=== PATIENT | male | born 2000 | race Caucasian/White ===

== ENCOUNTER 2019-05-10 08:00 | Observation (INO) ==
[2019-05-10 08:37] LABS: Basophils # (auto) 0.03 K/uL (0-0.2); Basophils % (auto) 0.2 %; Eosinophils # (auto) 0.04 K/uL (0-0.5); Eosinophils % (auto) 0.3 %; Hematocrit (blood only) 40.2 % (42-52); Hemoglobin 14.7 g/dL (14.0-18.0); Immature Granulocytes # (auto) 0.02 K/uL (0.00-0.02); Immature Granulocytes % (auto) 0.2 %; Lymphocytes # (auto) 1.51 K/uL (1.2-3.4); Lymphocytes % (auto) 12.1 %; Mean Corpuscular Hemoglobin 31.3 pg (25-34); Mean Corpuscular Hgb Conc 36.6 g/dL (32-36); Mean Corpuscular Volume 85.7 fL (80-100); Mean Platelet Volume 9.1 fL (7.4-10.4); Monocytes # (auto) 0.94 K/uL (0.11-0.59); Monocytes % (auto) 7.6 %; Neutrophils # (auto) 9.89 K/uL (1.4-6.5); Neutrophils % (auto) 79.6 %; Platelet Count 261 K/uL (130-400); RDW Coefficient of Variation 13.8 % (11.5-14.5); RDW Standard Deviation 42.8 fL (36.4-46.3); Red Blood Count 4.69 M/uL (4.7-6.1); White Blood Count 12.43 K/uL (4.8-10.8)
--- NOTE | 2019-05-10 09:36 | History & Physical Report ---
Date of Service May 10, 2019 Assessment & Plan (1) Right lower quadrant abdominal pain: This is a 19yM who presents to the [facility] ED this AM with complaints of abdominal pain. Initial CT was read as showing a stool burden without an acute intraabdominal process and was re-read this AM by our radiologist with some concerns for acute appendicitis, despite difficult visualization of the appendix. WBC 12.4. On examination patient has diffuse abdominal pain mostly of lower abdomen, that is worse in the RLQ to palpation. His pain is improving, but he did receive morphine around 6am. As CT read is equivocal and patient's pain is overall improving, we will admit the patient under observation status at this time and will check on him again later this AM with Dr. Conn. Will keep him NPO with IVF in the event we decide to operate on patient later today. Patient is agreeable with the plan. History of Present Illness Primary Care Provider: [facility] This is a 19y M who presents to the [facility] ED on the AM of 05/10/19 with complaints of abdominal pain. Patient reports that he woke up from his sleep this morning around 4AM with diffuse abdominal pain ranking it an 8/10. He used pillows for pressure and no matter what he position he attempted to lie in could not get comfortable. Because of the severity of the pain patient reported to the ED for further evaluation. He endorses nausea without vomiting. He denies diarrhea, fevers, or chills. He ate chicken and rice last night for dinner around 6:30 pm and had some milk of magnesia and apple juice this AM in the ED. Patient says he did pass a small BM today after the M.O.M. In the ED patient is afebrile, WBC 12.4, and a CT scan obtained was read as although the appendix is difficult to visualize, there is concern for acute appendicitis as there is a small amount of fluid in the pelvis. General surgery was consulted for further evaluation. Of note, the patient was initially sent home from the ED as CT scan read by overnight radiologist was not concerning for an acute intraabdominal process and was re-read this AM by [facility] radiology raising the concern for the probability of acute appendicitis and therefore was called back. Patient states his pain is improving, but did receive some pain meds in the ED. Allergies Allergy/AdvReac Type Severity Reaction Status Date / Time No Known Allergies Allergy Unverified 05/10/19 08:55 Home Medications Home Medications Medication Instructions Recorded Confirmed Type bupropion HCl 150 mg PO QAM 05/10/19 05/10/19 History emtricitabine-tenofovir (TDF) 1 tab PO QAM 05/10/19 05/10/19 History [Truvada] Past Med/Surg History Medical History No significant past medical history Social History Preferred Language: Mosotho Communication Ability: Effective Beliefs That Will Affect Care: None Current Living Situation: Other Current Living Situation Comment: ROOMMATE Other Information That Helps Us Care for You: No Feels Safe at Home: Yes Safety Concerns: Feels Safe At This Time Smoking Status: Never smoker Hx Alcohol Use: No Hx Substance Use: No Review of Systems Constitutional: no fever and no chills Gastrointestinal: + abdominal pain (diffuse, worse in the RLQ when palpated), + bloating and + nausea; no vomiting and no diarrhea/loose stools Genitourinary: + as per Subjective / HPI (no urinary complaints) Physical Exam Physical Exam: awake/alert Constitutional: well developed, well nourished, cooperative and comfortable; no acute distress Respiratory: normal respiratory effort; no respiratory distress Cardiovascular: Rate/Rhythm: regular rhythm Gastrointestinal (Abdomen): Percussion/Palpation: + abdomen tender (general mild tenderness to palpation, worse in RLQ) and abdomen soft Results & Data Vital Signs (Past 12 Hours) Vital Signs Temp Pulse Resp BP Pulse Ox 05/10/19 08:06 36.8 C 101 H 20 122/[address] OF THE ABDOMEN AND PELVIS WITH CONTRAST CLINICAL HISTORY: Right lower quadrant abdominal pain. Evaluate for acute appendicitis. COMPARISON STUDY: None. TECHNIQUE: Following IV administration of 92 mL of Optiray-320, axial images of the abdomen and pelvis were obtained from the lung bases to the proximal femurs. Images were reviewed in the axial, sagittal, and coronal planes. IV contrast was administered without complication. Automated exposure control was utilized for the study. A dose lowering technique was utilized adhering to the principles of ALARA. CT DOSE: 370.80 mGy.cm FINDINGS: Lung bases are clear. The upper, adrenal glands, kidneys and pancreas are normal. There is borderline splenomegaly. There is no evidence for a bowel obstruction. A small mild fluid within the pelvis is noted. There is stool within the terminal ileum. The appendix is difficult to visualize but likely demonstrated within the posterior upper pelvis on axial image 301 of 486. This measures 1 cm in caliber and appears to be blind-ending. No rim-enhancing fluid collection is identified to suggest an abscess. There are no suspicious osseous lesions. IMPRESSION: Probable acute appendicitis. Appendix difficult to visualize but likely abnormal with a small amount of fluid within the pelvis. No free air or periappendiceal abscess. Findings discussed with Dr. Callahan at time of dictation. Electronically signed by: Stew Mayer M.D. 05/10/2019 7:44 AM Code Status & VTE Plan VTE Prophylaxis Plan VTE Prophylaxis will be ordered: Yes Supervising Physician Co-Signing Physician Notes Events of last night and this morning and examining patient is documented Patient had acute onset of abdominal pain 4:00 this morning was seen in the emergency room after given morphine and getting a CAT scan with the original reading which was negative was sent home I reviewed the CAT scan the patient was found to have possible appendicitis The patient at this time states that he is feeling better than when he first came in emergency room last evening His sclera is injected he feels warm he has exquisite tenderness and rebound in right lower quadrant below McBurney's point testes is normal there is no hernias but are examined in the canal he does experience some discomfort Repeat white count was noted with left shift The father is at bedside At this point I recommended the patient undergo laparoscopic appendectomy possible open risk and complication were explained to the patient including bleeding infection converting to an open procedure and like to proceed accordingly PG Care Time/CCT Total # of Minutes Spent Total Time Spent with Patient: Total time spent is greater than 50% in coordination of care (as documented) at patient's floor/unit and/or counseling patient:
[2019-05-10] MEDS ORDERED: ONDANSETRON INJ 2 MG/ML 2 ML VIAL IV PRN ×2 (10:07→13:48)
[2019-05-10] MEDS ORDERED: MoRPHine SULFATE 4 MG/ML 1 ML CARP\\VIAL IV PRN (10:07)
[2019-05-10] MEDS ORDERED: SODIUM CHLORIDE 0.9% 1000ML 1,000 ML IV SCH (10:07)
[2019-05-10] MEDS ORDERED: MoRPHine SULFATE 2 MG/ML CARP IV PRN (10:07)
[2019-05-10] MEDS ORDERED: ACETAMINOPHEN 325 MG TAB PO PRN (10:07)
[2019-05-10] MEDS: BuPROPion XL 150 MG TABCR PO SCH (11:10)
[2019-05-10] MEDS ORDERED: cefOXitin 2,000 MG in DEXTROSE 5% 50 ML IV STA (11:47)
[2019-05-10] MEDS ORDERED: LIDOCAINE/EPINEPHRINE 1% 20 ML VIAL ONE (11:56)
[2019-05-10] MEDS ORDERED: fentaNYL citrate 100 MCG/2 ML VIAL ONE ×2 (12:15→13:00)
[2019-05-10] MEDS ORDERED: MIDAZOLAM HCL 1 MG/ML 2ML VIAL ONE (12:15)
--- NOTE | 2019-05-10 12:41 | Anesthesiology Consultation ---
Date of Service May 10, 2019 Assessment & Plan Chart Review Chart Review: Acceptable Risk for Surgery and Patient NOT seen in Pre Admission Testing Consults Requested none ASA ASA1E Proposed Anesthesia Anesthesia Type: General Risk / Benefits Reviewed With: PT / POA / Parent / Guardian, Accepts Plan and Informed Consent Obtained History Surgery Operation Date: 05/10/19 07:30 Proposed Procedures p Laparoscopic Appendectomy - Benjamin Conn MD Height/Weight Height: 5 ft 11 in Weight: 81.2 kg Allergies Allergy/AdvReac Type Severity Reaction Status Date / Time No Known Allergies Allergy Unverified 05/10/19 08:55 Medications Home Medications Medication Instructions Recorded Confirmed Last Taken bupropion HCl 150 mg PO QAM 05/10/19 05/10/19 05/09/19 emtricitabine-tenofovir (TDF) 1 tab PO QAM 05/10/19 05/10/19 05/09/19 [Truvada] Active Medications Generic Name Dose Route Start Last Admin Trade Name Freq PRN Reason Stop Dose Admin Bupropion HCl 150 mg 05/10/19 10:07 05/10/19 11:10 Wellbutrin-Xl PO 06/09/19 10:06 150 mg QAM TRACIE Administration Sodium Chloride 1,000 mls @ 125 mls/hr 05/10/19 10:07 05/10/19 12:02 Nss 1000ml IV 06/09/19 10:06 0 mls/hr .Q8H TRACIE Infusion NPO Date Last Intake of Fluids: 05/10/19 Time Last Intake of Fluids: 07:30 Last Intake of Fluids Comment: mom,apple juice, sprite Date Last Intake of Solids: 05/09/19 Time Last Intake of Solids: 18:00 Past Medical History Medical History No significant past medical history Exercise / Class Metabolic Activity 1 > 8 Run/Swim/Ski/Tennis Past Anesthesia History No Hx of Anesthesia Complications and No Family Hx of Anesthesia Complications History of PONV No Hx of PONV and No Hx of Motion Sickness Social History Smoking Status: Never smoker Hx Alcohol Use: No Hx Substance Use: No Physical Exam Vital Signs Last Vital Signs Temp 36.8 C 05/10/19 12:18 Pulse 84 05/10/19 12:18 Resp 16 05/10/19 12:18 BP 120/70 05/10/19 12:18 Pulse Ox 100 05/10/19 12:18 Constitutional not obese ENMT Mouth: no dentition abnormality Thyromental Distance: > or= 3.5 Finger Breadths Mallampati Class: II Neck normal visual inspection, trachea midline and + facial hair; neck extension not limited Respiratory normal respiratory effort Auscultation: lungs clear to auscultation bilaterally Cardiovascular Rate/Rhythm: regular rate and regular rhythm Heart Sounds: no murmur Musculoskeletal Spine: normal cervical ROM Neurologic moves all extremities Motor/Sensory: no sensory deficit Psychiatric Orientation: alert and oriented x 3 Testing Laboratory Results 05/10/19 08:28 05/10/19 08:28
[2019-05-10] MEDS ORDERED: ONDANSETRON INJ 2 MG/ML 2 ML VIAL ONE (13:02)
[2019-05-10] MEDS ORDERED: PROPOFOL IV EMULSION 10 MG/ML 20 ML VIAL IV ONE (13:02)
[2019-05-10] MEDS ORDERED: DEXAMETHASONE SOD INJ 4 MG/ML VIAL ONE (13:02)
[2019-05-10] MEDS ORDERED: ROCURONIUM BROMIDE 10 MG/ML 5 ML VIAL ONE (13:02)
[2019-05-10] MEDS ORDERED: NEOSTIGMINE METHYLSULFATE 5 MG/5 ML SYR ONE (13:02)
[2019-05-10] MEDS ORDERED: GLYCOPYRROLATE 0.2 MG/ML VIAL ONE (13:02)
[2019-05-10] MEDS ORDERED: LIDOCAINE HCL 2% 2 ML VIAL/AMP(20MG/ML) INFIL ONE (13:02)
[2019-05-10] MEDS ORDERED: LARYING-O-JET KIT (LTA) ONE (13:02)
[2019-05-10] MEDS ORDERED: KETOROLAC 30 MG/ML VIAL ONE (13:29)
--- NOTE | 2019-05-10 13:34 | Post Operative Brief Note ---
PG Immediate Post Op with CF Date of Surgery May 10, 2019 Pre & Post Diagnosis Operation Date: 05/10/19 07:30 Pre-Op Diagnosis: Acute appendicitis Post-Op Diagnosis: Acute appendicitis I identified the patient and participated in the time-out.: Yes Procedure Operation Date: 05/10/19 07:30 Actual Procedures p Laparoscopic Appendectomy(Not Applicable) - Benjamin Conn MD Surgeon Benjamin Conn MD Production Weigher roxana hutchinson Estimated Blood Loss 5 Findings Consistent with Post-Op Diagnosis Specimens Specimen Description: A. Appendix
[2019-05-10] MEDS ORDERED: HYDROmorphone INJ 1 MG/ML SYRINGE IV PRN (13:48)
[2019-05-10] MEDS ORDERED: FLUMAZENIL 0.1 MG/1 ML 10 ML VIAL IV PRN (13:48)
[2019-05-10] MEDS ORDERED: PROMETHAZINE HCL 12.5 MG in SODIUM CHLORIDE 0.9% 50 ML IV PRN (13:48)
[2019-05-10] MEDS ORDERED: ATROPINE SULFATE 0.1 MG/ML 10ML SYR IV PRN (13:48)
[2019-05-10] MEDS ORDERED: ePHEDrine sulfate 50 MG/ML AMP IV PRN (13:48)
[2019-05-10] MEDS ORDERED: NALOXONE HCL 0.4 MG/1 ML VIAL/CARP IV PRN (13:48)
--- NOTE | 2019-05-10 13:57 | Operative Report ---
PG Post Operative Report Pre & Post Diagnosis Operation Date: 05/10/19 07:30 Pre-Op Diagnosis: Acute appendicitis Post-Op Diagnosis: Acute appendicitis I identified the patient and participated in the time-out.: Yes Procedure Operation Date: 05/10/19 07:30 Actual Procedures p Laparoscopic Appendectomy(Not Applicable) - Benjamin Conn MD The patient was brought into the operating theater in supine position general anesthesia administered systemic antibiotics given the abdomen shaved and prepped with Betadine solution properly draped timeout was had patient identified small transverse incision was made supraumbilically approximately quarter inch long Veress needle followed by CO2 followed by 5 mm trocar point of entry inspected no injury and then a 5 and direct utilization we placed a 5 mm right upper quadrant port with preemptive local analgesic we scanned the abdomen with the scope and identified what appeared to be some fibers and exudate overlying the omentum patient was very thin and had very little omentum but we could see some appearances then returned to the cecal area we able to identify the appendix at its base is going down towards the pelvic inlet did not see any cloudy fluid or any evidence of rupture. Therefore at this time we placed the CO2 insufflator right upper quadrant port enlarged the incision in the umbilical area by enlargement first the skin and subcutaneous tissue using a Lesvia clamp to dilate out the tract from 5 mm to 11 mm trocar under direct visualization the 5 mm trocar was placed in left lower quadrant followed by the camera in that area the patient was placed in reverse Trendelenburg rotated to the left we were able then to elevate the cecum patient had a very redundant appendix noted pretty much diffusely dilated with the tip has a fibrous exudate without any rupture. We created a window at the base the appendix from the cecum and used a xie loads to this could be a purple load to fire at the base freeing it from the cecum. The mesoappendix was quite long edematous as a lot of fibers and exudate lateral aspect going on the lateral wall we then took this down by sharp diss ection electrocautery were able then to elevate the mesoappendix and use of the purple stapler to divided completely and elevated the appendix off the tissue there appears satisfactory just minimal oozing along the staple line we would observe this the appendix was placed in an Endopouch taken out intact through the epigastric port patient was taken in the reverse Trendelenburg I irrigated the abdomen and pelvic area sufficiently enough that we were found that hemostasis but is fairly satisfactory we elevated the cecum again identified the appendix remnant which was very little almost appeared to be in the cecal area the mesoappendix and the oozing of pretty much subsided. This point individual trochars were taken under direct visualization unless the umbilical trocar fascial stitch of 2-0 Vicryl was used [id number] x2 for the umbilical area the abdomen 4-0 Monocryl Steri-Strips applied procedure was tolerated well estimated blood loss 5 cc addendum Roxana WEBBER was present throughout the procedure and helped with exposure camera work and wound closure thank you Surgeon Benjamin Conn MD [employer] Picker roxana webber Estimated Blood Loss 5 Findings Consistent with Post-Op Diagnosis Specimens appendix Description of Procedure merda I attest to the content of the Intraoperative Record and any orders documented therein. Any exceptions are noted below.
--- NOTE | 2019-05-10 14:24 | Emergency Department Note ---
Entered by Souleymane Perdomo acting as a scribe for History of Present Illness General Chief complaint: Abdominal Pain Stated complaint: ABDOMINAL PAIN Source: patient History of Present Illness Provider complaint: Abdominal pain Onset (ago): hour(s) (4.5) Location: abdomen Pain Consistency: + constant Maximum Pain Intensity: 6 Current Pain Intensity: 6 Relieved By: + none Exacerbated By: + other (Palpation) Associated symptoms: + nausea/vomiting (No vomiting) The patient is a 19 year old male w/ PMHx of constipation and splenomegaly who presents to the ED w/ CC of right lower quadrant pain that started this morning about 4.5 hours ago. The patient rates the pain as a 6/10 and notes nothing makes it better but palpating the area makes it worse. The patient endorses nausea with the pain but denies any episodes of emesis. The patient was in the ED when his symptoms initially onset, and [facility] read his CT as normal, however the [facility] radiologist could not visualized the appendix enough to confidently say it was normal so he suggested to have the patient return. The patient adds that he was discharged with milk of magnesia which he did try along with apple juice and soda, but his symptoms did not change. Home Medications Home Medications Medication Instructions Recorded Confirmed Type bupropion HCl 150 mg PO QAM 05/10/19 05/10/19 History emtricitabine-tenofovir (TDF) 1 tab PO QAM 05/10/19 05/10/19 History [Truvada] oxycodone-acetaminophen [Percocet] 1 - 2 tab PO Q4H PRN #15 tab 05/10/19 Rx Allergies Allergy/AdvReac Type Severity Reaction Status Date / Time No Known Allergies Allergy Unverified 05/10/19 08:55 Past Med/Surg History Medical History No significant past medical history Family History Other No pertinent family history in first degree relatives Social History Preferred Language: Malian Communication Ability: Effective Beliefs That Will Affect Care: None Current Living Situation: Other Current Living Situation Comment: ROOMMATE Other Information That Helps Us Care for You: No Feels Safe at Home: Yes Safety Concerns: Feels Safe At This Time Smoking Status: Never smoker Hx Alcohol Use: No Hx Substance Use: No Review of Systems See HPI for pertinent positives & negatives. and A total of 10 systems reviewed and were otherwise negative Physical Exam Vital Signs Vital Signs - 24 hr 05/10/19 08:06 Temperature 36.8 C Temperature Source Oral Sepsis Recent Fever Within 48 Hours No Sepsis New/Unexplained Change in Mental Status No Sepsis Action Taken by Nursing No Action Required Pulse Rate 101 H Pulse Rhythm Regular Pulse Strength Normal Respiratory Rate 20 Respiratory Effort / Characteristics Non-Labored Spontaneous Respiratory Depth Normal Respiratory Pattern Regular Blood Pressure 122/67 Blood Pressure Mean 85 Blood Pressure Position Sitting Pulse Oximetry 100 Oxygen Delivery Method Room Air GENERAL: Sitting up in bed, alert, disheveled, in mild distress, non-toxic EYE EXAM: normal conjunctiva. OROPHARYNX: no exudate, no erythema, lips, buccal mucosa, and tongue normal and mucous membranes are moist NECK: supple, no nuchal rigidity, no adenopathy, non-tender LUNGS: Clear to auscultation. Normal chest wall mechanics HEART: no murmurs, S1 normal and S2 normal ABDOMEN: abdomen soft, acute TTP to the RLQ, normo-active bowel, sounds, no masses, no rebound or guarding. : Normal external genitalia, nontender, no discharge. SKIN: no rashes and no bruising UPPER EXTREMITIES: upper extremities are grossly normal. LOWER EXTREMITIES: No pitting edema. NEURO EXAM: Normal sensorium, cranial nerves II-XII grossly intact, normal speech, no gross weakness of arms, no gross weakness of legs. Course ED COURSE: Vital signs were reviewed and were normal. The patients medical record was reviewed The above diagnostic studies were performed and reviewed. ED treatments and interventions as stated above. 0831: The patient was evaluated in room B02. A complete history and physical examination was performed. 0841: I spoke to Christina Lynn - General surgery PAC about the patient's case. 0923: I spoke to Chritsina Lynn about the patient's case. She states that her and Dr. Conn are going to accept the patient for further observation. 0940: Upon reevaluation, the patient is resting in bed. I discussed my findings with the patient and he understands and agrees with the treatment plan. Based on the patients age, coexisting illnesses, exam and lab findings the decision to treat as an inpatient was made. The patient remained stable while under my care. The patient will be evaluated for further management. Consultations Consultation #1: I spoke to Christina Lynn - General surgery PAC about the patient's case. Time: 08:41 Consultation #2: I spoke to Christina Lynn - GI PAC about the patient's case. She states that her and Dr. Cnon are going to accept the patient for further observation. Time: 09:23 Administered Medications Bupropion HCl (Wellbutrin-Xl) 150 mg PO QAM TRACIE Stop: 06/09/19 10:06 Last Admin: 05/10/19 11:10 Dose: 150 mg Documented by: [id number] Sodium Chloride (Nss 1000ml) 1,000 mls @ 125 mls/hr IV .Q8H TRACIE Stop: 06/09/19 10:06 Last Infusion: 05/10/19 12:02 Dose: 0 mls/hr Documented by: [id number] Admin: 05/10/19 10:20 Dose: 125 mls/hr Documented by: [id number] Discontinued Medications Cefoxitin Sodium 2,000 mg/ (Dextrose) 60 mls @ 100 mls/hr IV NOW STA Stop: 05/10/19 12:22 Last Admin: 05/10/19 12:38 Dose: 100 mls/hr Documented by: [id number] Lidocaine/Epinephrine (Xylocaine/Epinephrine 1%) Confirm Administered Dose 20 ml .ROUTE .STK-MED ONE Stop: 05/10/19 11:57 Last Admin: 05/10/19 13:33 Dose: 5 ml Documented by: [id number] Medical Decision Making Differential Diagnosis Differential diagnoses includes but is not limited to gastritis, peptic ulcer disease, GERD, gallbladder disease, pancreatitis, small bowel obstruction, acute coronary syndrome, pericarditis, ischemic bowel, irritable bowel disease, irritable bowel syndrome, appendicitis, diverticulitis, malignancy, hernia, urinary tract infection, torsion, perforation, trauma, infectious. Medical Records Attestation: I reviewed the patient's medical records. Home Medications Current Medication List: was personally reviewed by me Laboratory Data Attestation: I reviewed the patient's lab results. Result diagrams: 05/10/19 08:28 05/10/19 08:28 Lab Results 05/10/19 05/10/19 Range/Units 08:28 08: WBC 12.43 H (4.8-10.8) K/uL RBC 4.69 L (4.7-6.1) M/uL Hgb 14.7 (14.0-18.0) g/dL Hct 40.2 L (42-52) % MCV 85.7 (80-100) fL MCH 31.3 (25-34) pg MCHC 36.6 H (32-36) g/dL RDW Std Deviation 42.8 (36.4-46.3) fL RDW Coeff of Kirstin 13.8 (11.5-14.5) % Plt Count 261 (130-400) K/uL MPV 9.1 (7.4-10.4) fL Immature Gran % (Auto) 0.2 % Neut % (Auto) 79.6 % Lymph % (Auto) 12.1 % [place] % (Auto) 7.6 % Eos % (Auto) 0.3 % Baso % (Auto) 0.2 % Immature Gran # (Auto) 0.02 (0.00-0.02) K/uL Neut # (Auto) 9.89 H (1.4-6.5) K/uL Lymph # (Auto) 1.51 (1.2-3.4) K/uL [place] # (Auto) 0.94 H (0.11-0.59) K/uL Eos # (Auto) 0.04 (0-0.5) K/uL Baso # (Auto) 0.03 (0-0.2) K/uL Sodium Cancelled Potassium Cancelled Chloride Cancelled Carbon Dioxide Cancelled Anion Gap Cancelled BUN Cancelled Creatinine Cancelled Est Cr Clr Drug Dosing Cancelled Est GFR ( Amer) Cancelled Est GFR (Non-Af Amer) Cancelled BUN/Creatinine Ratio Cancelled Glucose Cancelled Calcium Cancelled Total Bilirubin Cancelled AST Cancelled ALT Cancelled Alkaline Phosphatase Cancelled Total Protein Cancelled Albumin Cancelled Globulin Cancelled Albumin/Globulin Ratio Cancelled Lipase Cancelled Blood Pressure Blood Pressure Findings: Normal blood pressure MDM Narrative Patient is a 19-year-old male who presents the ER for right lower quadrant abdominal pain which is been present since 4 AM. Patient was seen and evaluated in the ER earlier today had a CT of the abdomen pelvis which was read by stat read and showed no appendicitis. Our radiologist over read it and did question if there was acute appendicitis. His white count with this without leukocytosis. IV was established and blood work was reobtained and white count went up to 12,000. Patient was acutely tender. Was given IV fluids. He was discussed with general surgeon and he was admitted for further work-up. Impression & Plan Acute appendicitis, Right lower quadrant abdominal pain, Leukocytosis Discharge Plan Visit Data *Final* Discharge Date/Time: 05/10/19 09:53 Chief Complaint: Abdominal Pain Stated Complaint: ABDOMINAL PAIN ED Provider: Isaiah Summers Discharge Problem: Acute appendicitis, Right lower quadrant abdominal pain, Leukocytosis Patient Disposition: Admitted As Inpatient Discharge Instructions Interventions: ED Discharge Assessment Last Done: 05/10/19 09:53 The scribe's documentation has been prepared under my direction and personally reviewed by me in its entirety. I confirm that the note above accurately reflects all work, treatment, procedures, and medical decision making performed by me.
[2019-05-10] MEDS ORDERED: OXYCODONE/ACETAMINOPHEN 5mg/325mg TAB PO PRN (14:34)
[2019-05-10] MEDS: LACTATED RINGER'S 1,000 ML IV SCH (15:03)
[2019-05-10] MEDS ORDERED: cefOXitin 2,000 MG in DEXTROSE 5% 50 ML IV SCH (17:00)
[2019-05-10] MEDS: OXYCODONE/ACETAMINOPHEN 5mg/325mg TAB PO PRN ×2 (17:36→21:30)
[2019-05-10] MEDS ORDERED: cefOXitin 2,000 MG in DEXTROSE 5% 50 ML IV ONE (18:30)
[2019-05-10 23:02] VITALS: TEMP 98.1
[2019-05-11] MEDS: LACTATED RINGER'S 1,000 ML IV SCH (03:37)
[2019-05-11 05:34] LABS: Basophils # (auto) 0.02 K/uL (0-0.2); Basophils % (auto) 0.2 %; Eosinophils # (auto) 0.01 K/uL (0-0.5); Eosinophils % (auto) 0.1 %; Hematocrit (blood only) 37.9 % (42-52); Hemoglobin 13.1 g/dL (14.0-18.0); Immature Granulocytes # (auto) 0.02 K/uL (0.00-0.02); Immature Granulocytes % (auto) 0.2 %; Lymphocytes # (auto) 1.92 K/uL (1.2-3.4); Lymphocytes % (auto) 20.4 %; Mean Corpuscular Hemoglobin 30.3 pg (25-34); Mean Corpuscular Hgb Conc 34.6 g/dL (32-36); Mean Corpuscular Volume 87.5 fL (80-100); Mean Platelet Volume 9.2 fL (7.4-10.4); Monocytes % (auto) 10.6 %; Neutrophils # (auto) 6.43 K/uL (1.4-6.5); Neutrophils % (auto) 68.5 %; Platelet Count 262 K/uL (130-400); RDW Coefficient of Variation 13.7 % (11.5-14.5); RDW Standard Deviation 43.5 fL (36.4-46.3); Red Blood Count 4.33 M/uL (4.7-6.1)
[2019-05-11 06:06] LABS: BUN Creatinine Ratio 18.7 (10-20); Calcium 8.3 mg/dl (8.5-10.1); Creatinine Clr Calc Pharmacy 128.1 ml/min; Est GFR (African American) 128.1; Est GFR (Non-African American) 110.5; Potassium 4.2 mmol/L (3.5-5.1)
[2019-05-11] MEDS ORDERED: COUGH DROP (SUGAR FREE) LOZ 24 LOZ/1 BOX BUCCAL ONE (07:20)
--- NOTE | 2019-05-11 07:46 | Surgery Progress Note ---
Date of Service May 11, 2019 Assessment & Plan (1) Acute appendicitis: POD#1 laparoscopic appendectomy WBC 9.4 today and VSS Incisions clean/dry/intact Pain well managed and diet tolerated Plan for discharge to home today. Pt given instructions to follow up in clinic within 1 week for a post op check; okay to take some days off from school Subjective Patient slept well last night. Offers no complaints. Pain is well managed and he is tolerating a regular diet. Physical Exam Physical Exam: awake/alert. mother at bedside Constitutional: well developed and well nourished; no acute distress Respiratory: normal respiratory effort Gastrointestinal (Abdomen): Inspection/Auscultation: + abdominal surgical incision (surgical dressings clean/dry/intact) Results & Data Vital Signs (Past 12 Hours) Vital Signs Temp Pulse Resp BP Pulse Ox 05/11/19 03:55 36.7 C 62 16 103/58 L 99 05/10/19 23:00 36.7 C 78 16 119/63 98 PG Care Time/CCT Total # of Minutes Spent Total Time Spent with Patient: Total time spent is greater than 50% in coordination of care (as documented) at patient's floor/unit and/or counseling patient: (1) Acute appendicitis Acute appendicitis type: unspecified acute appendicitis type Qualified Code(s): K35.80 - Unspecified acute appendicitis
--- NOTE | 2019-05-11 07:49 | Anesthesiology Progress Note ---
Date of Service May 11, 2019 Anesthesia Post Procedure Vital Signs Vital Signs: Temp Pulse Pulse Pulse Resp BP BP 05/11/19 03:55 36.7 C 62 16 103/58 L 05/10/19 23:00 36.7 C 78 16 119/63 05/10/19 19:00 36.5 C 85 16 05/10/19 17:59 36.6 C 85 18 05/10/19 16:35 36.6 C 86 16 05/10/19 15:35 36.7 C 81 16 05/10/19 15:05 36.8 C 87 16 05/10/19 14:35 36.7 C 81 16 05/10/19 14:25 36.5 C 71 16 05/10/19 14:15 36.5 C 70 16 05/10/19 14:05 68 16 05/10/19 13:55 62 16 05/10/19 13:49 36.6 C 86 16 05/10/19 12:18 36.8 C 84 16 120/70 05/10/19 10:19 36.7 C 81 16 120/68 05/10/19 09:50 95 H 16 05/10/19 08:06 36.8 C 101 H 20 122/67 BP Pulse Ox 05/11/19 03:55 99 05/10/19 23:00 98 05/10/19 19:00 120/66 98 05/10/19 17:59 114/66 98 05/10/19 16:35 107/62 98 05/10/19 15:35 109/66 96 05/10/19 15:05 117/68 99 05/10/19 14:35 112/69 100 05/10/19 14:25 108/66 97 05/10/19 14:15 114/69 96 05/10/19 14:05 114/64 97 05/10/19 13:55 111/72 100 05/10/19 13:49 112/66 100 05/10/19 12:18 100 05/10/19 10:19 99 05/10/19 09:50 125/66 99 05/10/19 08:06 100 Pain Intensity Right Abdomen: Pain Intensity: 4 Notes Mental Status: alert / awake / arousable and participated in evaluation Patient Amnestic to Procedure: Yes Nausea / Vomiting: adequately controlled Pain: adequately controlled Airway Patency, RR, SpO2: stable & adequate BP & HR: stable & adequate Hydration State: stable & adequate Anesthetic Complications: no major complications apparent and Pt Satisfied with anesthetic care
--- NOTE | 2019-05-11 07:52 | Discharge Summary ---
Date of Service May 11, 2019 Admission HPI Per Admitting Provider This is a 19y M who presents to the [facility] ED on the AM of 05/10/19 with complaints of abdominal pain. Patient reports that he woke up from his sleep this morning around 4AM with diffuse abdominal pain ranking it an 8/10. He used pillows for pressure and no matter what he position he attempted to lie in could not get comfortable. Because of the severity of the pain patient reported to the ED for further evaluation. He endorses nausea without vomiting. He denies diarrhea, fevers, or chills. He ate chicken and rice last night for dinner around 6:30 pm and had some milk of magnesia and apple juice this AM in the ED. Patient says he did pass a small BM today after the M.O.M. In the ED patient is afebrile, WBC 12.4, and a CT scan obtained was read as although the appendix is difficult to visualize, there is concern for acute appendicitis as there is a small amount of fluid in the pelvis. General surgery was consulted for further evaluation. Of note, the patient was initially sent home from the ED as CT scan read by overnight radiologist was not concerning for an acute intraabdominal process and was re-read this AM by [facility] radiology raising the concern for the probability of acute appendicitis and therefore was called back. Patient states his pain is improving, but did receive some pain meds in the ED. Principal Diagnosis acute appendicitis Discharge Exam awake/alert. mother at bedside Constitutional well developed, well nourished and cooperative; no acute distress Respiratory normal respiratory effort Cardiovascular Rate/Rhythm: regular rate and regular rhythm Gastrointestinal (Abdomen) Inspection/Auscultation: + abdominal surgical incision (surgical bandages clean/dry/intact) Discharge Data Allergies Allergy/AdvReac Type Severity Reaction Status Date / Time No Known Allergies Allergy Unverified 05/10/19 08:55 Consultations 05/10/19 08:55 Consult General Surgery Stat Procedures Performed Operation Date: 05/10/19 07:30 Actual Procedures p Laparoscopic Appendectomy(Not Applicable) - Benjamin Conn MD Hospital Course (1) Acute appendicitis: This is a 19y M who presents to the [facility] ED on the AM of 05/10/19 with complaints of abdominal pain starting around 4am. CT scan was ultimately read as concerning for acute appendicitis. WBC uptrending to 12.4 and patient continued with ongoing abdominal pain. On exam patient acutely tender to palpation in the RLQ. He was made NPO with IVF and started on pre-op IV abx. On 05/10 the patient went to the OR for a laparoscopic appendectomy with Dr. Conn. The patient tolerated the procedure well, see operative report for full details. Post operatively the patient remained admitted under observation as appendix was inflamed intraop. His diet was advanced as tolerated, activity encouraged, and he was voiding on his own spontaneously. On POD#1 patient continued to tolerate a diet, pain was well controlled, and surgical incisions clean/dry/intact. WBC 9.4, patient afebrile, and VSS. He was deemed stable for discharge to home. He was instructed to follow up in clinic within 1 week. Total Time Total Time Spent Total Time Spent (In Minutes): 15 Discharge Plan Discharge Items Patient Disposition: Home - Self-Care Reason For Visit: ABDOMINAL PAIN Discharge Diagnosis: appendectomy Activity: As commented below Lifting: No more than 10 pounds Bathing Comment: can shower today. your top surgical bandages can be removed today as well. Exercise/Sports: Gradually increase as tolerated Driving/Machine Use: Resume 3 days after discharge Non-emergency contact: Surgeon Call non-emergency contact if: you have any medication questions, your pain is not controlled, your pain is worsening, you have a fever, your temperature is above 101.5, your wound has increased redness and your wound has increased drainage Follow-up/Referrals: Benjamin Conn MD [Surgeon] - (Call to make an appt in 1 week) [facility] [Primary Care Provider] - Diet: Regular Addtl Attending Provider Instructions: You may take Tylenol and Ibuprofen over the counter if needed for pain. Do not exceed more than 4grams of Acetaminophen within a 24 hour time period. Pending Studies at Discharge: No Stand-Alone Forms: [employer], Opio[facility] Pain [facility], Work/School Release (Inpt), Smoking Cessation Medications and DC Order Prescriptions: New oxycodone-acetaminophen [Percocet] 5-325 mg tablet 1 - 2 tab PO Q4H PRN (Reason: pain, initial therapy, max 8 daily) Qty: 15 RF: 0 Continued bupropion HCl 150 mg Tablet Extended Release 24 Hr 150 mg PO QAM RF: 0 Truvada 200-300 mg Tablet 1 tab PO QAM RF: 0 Discharge Orders: Discharge Order (Routine); Ordered 05/11/19 Ordered By: Christina Ray/Other Patient Handouts: Appendectomy Admission Data Admit Date/Time: 05/10/19 09:31 Attending Provider: Benjamin Conn Admit Provider: Benjamin Conn Primary Care Provider: [facility] Other Providers: Benjamin Conn
[2019-05-11 08:15] VITALS: O2SAT 100
[2019-05-11 08:18] VITALS: BP 120/66; PULSE 62
[2019-05-11] MEDS: BuPROPion XL 150 MG TABCR PO SCH (08:52)
== END 2019-05-11 09:14 | disposition home or self-care (01) ==
LOC: 3W 08:00 → ED 08:00 → 3W 09:53